=== PATIENT | male | born 1995 | race Asian ===

== ENCOUNTER 2017-03-16 10:43 | Emergency (ER) | payer OTHER ==
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
[2017-03-16] MEDS ORDERED: Diphtheria,Pertussis(Acell),Tetanus Vaccine 0.5 ML Syringe IM ONE (12:07)
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
== END 2017-03-16 12:28 | disposition home or self-care (01) ==
LOC: MW.ED 10:43
DX: S80.212A Abrasion, left knee, initial encounter (principal); S50.312A Abrasion of left elbow, initial encounter; V49.88XA Car occupant (driver) (passenger) injured in other specified transport accidents, initial encounter; Y92.410 Unspecified street and highway as the place of occurrence of the external cause; Z23 Encounter for immunization; Z91.018 Allergy to other foods; Z91.09 Other allergy status, other than to drugs and biological substances
CPT/HCPCS: 73070-26-LT; 73070-LT; 73560-26-LT; 73560-LT; 90471; 90715; 99283; 99284-25